=== PATIENT | male | born 1985 | race American Indian/Alaskan Native ===

== ENCOUNTER 2018-03-22 22:05 | Emergency (ER) | payer SELFPAY ==
[2018-03-22 23:30] VITALS: BP 118/72
[2018-03-23] MEDS ORDERED: NORCO 7.5/325 PO ONE (01:00)
--- NOTE | 2018-03-23 01:03 | Emergency Department Report ---
Abscess Boil HPI - HPI Chief Complaint: Animal Bite Stated Complaint: BITE TO LEG Time Seen by Provider: 03/23/18 00:58 Duration: 3 Days Severity: Mild History: Yes Purulent Drainage, Yes Insect Bite, No Fever, No Pain, No Numbness , No Foreign Body HPI: 32-year-old male comes in complaining of a bite that he thinks on his left upper leg right below his buttock 3 days. He reports that his girlfriend has tried to express discharge from it. He complains of pain and difficulty sitting down. Home Medications: Previous Rx's Medication Instructions Recorded Last Taken Type Ibuprofen [Motrin 600 MG tab] 600 mg PO Q8H PRN #30 tablet 03/23/18 Unknown Rx Sulfamethoxazole/Trimethoprim 1 each PO BID #20 tablet 03/23/18 Unknown Rx [Bactrim Ds Tablet] Allergies/Adverse Reactions: Allergies Allergy/AdvReac Type Severity Reaction Status Date / Time No Known Allergies Allergy Unverified 03/22/18 23:30 ED Review of Systems ROS: Stated complaint: BITE TO LEG Other details as noted in HPI Constitutional: denies: chills, fever Skin: lesions (left upper leg below but ox) Neurological: denies: headache ED Past Medical Hx - Past Medical History Previous Medical History?: No - Surgical History Past Surgical History?: No - Social History Smoking Status: Current Every Day Smoker Substance Use Type: None - Medications Home Medications: Home Medications Medication Instructions Recorded Confirmed Last Taken Type Ibuprofen [Motrin 600 MG tab] 600 mg PO Q8H PRN #30 tablet 03/23/18 Unknown Rx Sulfamethoxazole/Trimethoprim 1 each PO BID #20 tablet 03/23/18 Unknown Rx [Bactrim Ds Tablet] ED Abscess Boil Physical Exam - Exam General: Vital signs noted. No distress. Alert and acting appropriately. Size: 3 cm Exam: Yes Tenderness, Yes Surrounding Cellulites/Erythema, Yes Normal Neurologic Exam, Yes Normal Circulation, No Fluctuance, No Lymphangitis, No Crepitation, No Heart Murmur ED Course Vital Signs 03/22/18 23:27 Temperature 98.5 F Pulse Rate 85 Blood Pressure 118/72 O2 Sat by Pulse 100 Oximetry Critical care attestation.: If time is entered above; I have spent that time in minutes in the direct care of this critically ill patient, excluding procedure time. ED Medical Decision Making - Medical Decision Making Patient has been evaluated by this provider fast track. I was able to express a small amount of purulent discharge from abscess. Abscess is not ready for incision and drain. I discussed the patient to take antibiotics warm compresses and return in 2-3 days for us to incision and drain if no improvement. Patient verbalized understanding. ED Disposition Clinical Impression: Cellulitis and abscess of buttock Disposition: DC- TO HOME OR SELFCARE Is pt being admited?: No Does the pt Need Aspirin: No Condition: Stable Instructions: Cellulitis (ED), Abscess (ED) Additional Instructions: Please complete antibiotics as prescribed. Ibuprofen for pain management. Please apply warm compresses to the lesion and follow-up if symptoms persist or gets worse. Prescriptions: Ibuprofen [Motrin 600 MG tab] 600 mg PO Q8H PRN #30 tablet PRN Reason: Pain Sulfamethoxazole/Trimethoprim [Bactrim Ds Tablet] 1 each PO BID #20 tablet Referrals: PRIMARY CARE, [Primary Care Provider] - 3-5 Days Forms: Work/School Release Form(ED)
== END 2018-03-23 01:15 | disposition home or self-care (01) ==
LOC: ED 22:05
DX: L03.317 Cellulitis of buttock (principal); F17.200 Nicotine dependence, unspecified, uncomplicated
CPT/HCPCS: 87076; 87116; 87186; 99282

== ENCOUNTER 2021-03-01 12:00 | Emergency (ER) | payer SELFPAY ==
--- NOTE | 2021-03-01 12:50 | Emergency Department Report ---
ED General Adult HPI - General Chief complaint: Urogenital-Male Stated complaint: LT SIDE PAIN/BLOOD IN URINE Time Seen by Provider: 03/01/21 12:23 Source: patient Mode of arrival: Ambulatory Limitations: No Limitations - History of Present Illness Initial comments: 35-year-old male patient with remote history of proteinuria as a child presents to the emergency department with complaints of nontraumatic left flank pain for 1 month and hematuria for 2 days. Patient is not anticoagulated. He has no known history of kidney stones. No current steroid or antibiotic use. No recent trauma. He has not taken any medications for his symptoms. He has not follow-up with a primary care provider regarding these symptoms. Denies fever, chills, nausea, vomiting, diarrhea, constipation, rectal bleeding, melena, testicular pain/swelling, dysuria. Denies all other complaints at this time. - Related Data Previous Rx's Medication Instructions Recorded Last Taken Type Sulfamethoxazole/Trimethoprim 1 each PO BID #20 tablet 03/23/18 Unknown Rx [Bactrim Ds Tablet] Ibuprofen [Motrin 600 MG tab] 600 mg PO Q8H PRN #15 tablet 09/07/18 Unknown Rx Allergies Allergy/AdvReac Type Severity Reaction Status Date / Time No Known Allergies Allergy Verified 09/06/18 21:04 ED Review of Systems ROS: Stated complaint: LT SIDE PAIN/BLOOD IN URINE Other details as noted in HPI Other: GENERAL: Negative for fever, chills, weight change, anorexia, fatigue. ENT: Negative for ear pain, difficulty hearing, sore throat, nasal congestion, epistaxis. CARDIOVASCULAR: Negative for chest pain, palpitations, lower extremity swelling. PULMONARY: Negative for cough, dyspnea, wheezing, orthopnea, cyanosis. GASTROINTESTINAL: Positive for flank plain. GENITOURINARY: Positive for hematuria. MUSCULOSKELETAL: Negative for joint pain, joint swelling, myalgias, back pain, neck pain. NEUROLOGICAL: Negative for headache, seizure, syncope, paresthesias, weakness. INTEGUMENTARY: Negative for erythema, rash, diaphoresis, laceration, ecchymosis. HEMATOLOGICAL: Negative for hemoptysis, hematemesis, hematochezia, hematuria. PSYCHIATRIC: Negative for hallucinations, suicidal ideation, homicidal ideation, anxiety, depression. ED Past Medical Hx - Social History Smoking Status: Current Every Day Smoker Substance Use Type: Alcohol, Marijuana - Medications Home Medications: Home Medications Medication Instructions Recorded Confirmed Last Taken Type Sulfamethoxazole/Trimethoprim 1 each PO BID #20 tablet 03/23/18 Unknown Rx [Bactrim Ds Tablet] Ibuprofen [Motrin 600 MG tab] 600 mg PO Q8H PRN #15 tablet 09/07/18 Unknown Rx ED Physical Exam - General Limitations: No Limitations - Other Other exam information: General: Awake and alert. No acute distress. Head: Atraumatic, normocephalic. Eyes: EOMI. Pupils are equal and round. Normal sclera and conjunctiva. ENT: Oral mucosa is moist. Normal pharyngeal exam. Neck: Supple. No lymphadenopathy. Pulmonary: No respiratory distress. Clear to auscultation bilaterally. Cardiac: Regular rate and rhythm. Pulses are palpable and equal bilaterally. No lower extremity cyanosis or edema. Skin: Warm and dry. No rashes. Abdomen: Soft, non-protuberant. Mild upper left flank tenderness without guarding, rigidity, or rebound. Bowel sounds are normal. No organomegaly or masses noted. Back: Normal alignment. No CVA tenderness. Extremities: Symmetrical. Full range of motion intact. Neurological: Alert and oriented, appropriately interactive, no focal deficits. Psych: Cooperative. Appropriate mood and affect. Speech is evenly metered. Thoughts are logically construed. ED Course Vital Signs 03/01/21 03/01/21 12:08 17:12 Temperature 98.5 F 97.9 F Pulse Rate 85 68 Respiratory 18 20 Rate Blood Pressure 128/71 Blood Pressure 105/72 [Right] O2 Sat by Pulse 99 99 Oximetry ED Medical Decision Making - Lab Data Result diagrams: 03/01/21 12:58 03/01/21 12:58 - Medical Decision Making Differential diagnosis including but not limited to: pyelonephritis, nephrolithiasis, strain/sprain, hernia, abscess On reevaluation, patient remains stable. Repeat abdominal exam remains benign. He is afebrile, normal vital signs, no distress, tolerating PO without difficulty. No further hematuria episodes in the emergency department. Labs are unremarkable. CT of the abdomen/pelvis without contrast was obtained for further evaluation of possible kidney stone; no acute process. Urinalysis without evidence of infection. Patient does not have any concerns for STD exposure. Etiology of patient's ongoing left flank pain is unclear however there is no clinical indication for further diagnostic work-up on an emergent basis at this time. Patient will be discharged home with referral to primary care provider for close outpatient follow-up. He has been provided with a copy of all laboratory and imaging results to take with him to his follow-up appointment. Patient expressed understanding and is agreeable to plan of care. Strict return precautions provided. Repeat exam is unremarkable and benign. History, exam, diagnostic testing, and current condition do not suggest worrisome pathology to warrant further testing, continued ED treatment, admission, or surgical evaluation at this point. Given the low probability of a significant medical illness, it would be more likely to result in harm than benefit to perform further testing at this stage. Discussed findings, presumptive diagnosis, need for follow-up and specific signs/symptoms that should prompt immediate return to the emergency department. Instructions were explained in detail to the patient in addition to giving written discharge information. Patient expressed understanding and was given the opportunity to ask questions, all of which were satisfactorily answered prior to discharge home. Critical care attestation.: If time is entered above; I have spent that time in minutes in the direct care of this critically ill patient, excluding procedure time. ED Disposition Clinical Impression: Left flank pain Disposition: DC-01 TO HOME OR SELFCARE Is pt being admited?: No Does the pt Need Aspirin: No Condition: Stable Instructions: Abdominal Pain, Adult, [id number] Additional Instructions: Take Tylenol every 4 hours and Motrin every 8 hours as needed for pain. Rest. Drink plenty fluids. Follow-up with primary care provider this week for definitive management. Call tomorrow to schedule an appointment. See referral information below. Return to the emergency department immediately for new or worsening symptoms. Specifically, return to the emergency department immediately for fever, worsening pain, vomiting, rash, black/bloody stools, dehydration, difficulty using the bathroom, or any other concerns. Referrals: WAYNE YU MD [Staff Physician] - 3-5 Days [facility] [place] [Outside] - 3-5 Days [facility] [Outside] - 3-5 Days [facility] [Outside] - 3-5 Days Time of Disposition: 16:58
[2021-03-01 13:22] LABS: Basophils % (Auto) 0.5 % (0.0-1.8); Eosinophils % (Auto) 0.7 % (0.0-4.3); Hematocrit 43.2 % (35.5-45.6); Hemoglobin 14.3 gm/dl (11.8-15.2); Lymphocytes # (Auto) 1.3 K/mm3 (1.2-5.4); Lymphocytes % (Auto) 28.5 % (13.4-35.0); Mean Corpuscular HGB Conc 33 % (32-34); Mean Corpuscular Volume 91 fl (84-94); Monocytes # (Auto) 0.4 K/mm3 (0.0-0.8); Monocytes % (Auto) 9.5 % (0.0-7.3); Platelet Count 177 K/mm3 (140-440); Red Blood Count 4.75 M/mm3 (3.65-5.03); Red Cell Distribution Width 14.4 % (13.2-15.2)
[2021-03-01 13:45] LABS: Alanine Aminotransferase 10 units/L (7-56); Albumin 4.6 g/dL (3.9-5); BUN/Creatinine Ratio 10; Blood Urea Nitrogen 12 mg/dL (9-20); Calcium 9.2 mg/dL (8.4-10.2); Hemolysis Index 8
--- NOTE | 2021-03-01 14:07 | Cat Scan Report ---
CT ABDOMEN AND PELVIS WITHOUT CONTRAST HISTORY: Left flank pain COMPARISON: None TECHNIQUE: Routine abdominal and pelvic CT exam performed without contrast. Lack of intravenous cont rast limits evaluation of the vascular and solid organs.. All CT scans at this location are performed using CT dose reduction for ALARA by means of automated exposure control. FINDINGS: CT ABDOMEN: Lung Bases: No significant abnormality. Liver: No significant abnormality. Biliary: No significant abnormality. Spleen: No significant abnormality. Unenlarged. Pancreas: No significant abnormality. Adrenals: No significant abnormality. Kidneys: No stones, pelvocaliectasis, ureterectasis. No perinephric or periureteral stranding. Lymphatics: No lymphadenopathy. Vasculature: No significant abnormality. Bowel/Peritoneum: No significant abnormality. No free air. No free fluid. Appendix not visualized. No pericecal inflammation. CT PELVIC: : No significant abnormality. Lymphatics: No lymphadenopathy. Osseous Structures: No aggressive appearing osseous lesions. Additional Findings: None IMPRESSION: 1. No acute findings or findings to explain left flank pain. Signer Name: Jeremiah Spears MD Signed: 03/01/2021 2:02 PM Workstation Name: [id number]
[2021-03-01 16:27] LABS: Bilirubin,Urine NEG (Negative); Blood,Urine NEG (Negative); Color,Urine Yellow (Yellow); Mucus,Urine FEW /HPF; Protein,Urine <15 mg/dL mg/dL (Negative); Urobilinogen,Urine < 2.0 mg/dL (<2.0)
[2021-03-01 17:13] VITALS: BP 105/72
== END 2021-03-01 17:13 | disposition home or self-care (01) ==
LOC: ED 12:00
DX: R10.9 Unspecified abdominal pain (principal); F17.200 Nicotine dependence, unspecified, uncomplicated; F12.90 Cannabis use, unspecified, uncomplicated; Z79.899 Other long term (current) drug therapy
CPT/HCPCS: 36415; 74176; 80053; 81001; 83735; 85025